=== PATIENT | female | born 1965 | race Two or more races ===

== ENCOUNTER 2016-07-16 06:20 | Inpatient (IN) | payer BC ==
[2016-07-16] VITALS (10 sets, daily range): BP systolic 118–149; BP diastolic 60–88
[~2016-07-16] VITALS: Ht 162.6 cm; Wt 71.2 kg
[2016-07-16] MEDS ORDERED: ceFAZolin sod 2 GM in D5W 110 ML IVPB ONE (07:00)
[2016-07-16] MEDS ORDERED: LEVOTHYROXINE100 MCG ORAL (07:47)
[2016-07-16] MEDS ORDERED: LIORESAL20 MG ORAL (07:52)
[2016-07-16] MEDS ORDERED: MELOXICAM15 MG PO (07:52)
[2016-07-16] MEDS ORDERED: PANTOPRAZOLE SO20 MG ORAL (07:52)
[2016-07-16] MEDS ORDERED: GABAPENTIN100 MG ORAL (08:00)
[2016-07-16] MEDS ORDERED: CYMBALTA30 MG ORAL (08:01)
[2016-07-16] MEDS ORDERED: Thrombin 5000 units TOPIC ONE (08:16)
[2016-07-16] MEDS ORDERED: Gelfoam Absorbable 1gm powder pkt TOPIC ONE (08:17)
[2016-07-16] MEDS ORDERED: Bacitracin 50000 Units Vial ONE (08:17)
[2016-07-16] MEDS ORDERED: Bupivacaine w/Epi 0.5% 30ml Vial INJ ONE (08:17)
[2016-07-16] MEDS ORDERED: Thrombin 5000 units spray kit TOPIC ONE (08:17)
--- NOTE | 2016-07-16 08:55 | Pre-Procedure Note/Attestation ---
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 I attest that, if there was a reasonable possibility of needing a blood transfusion, the patient (or the patient's legal sales representative consultant) was given the [facility] standardized written summary, pursuant to the [place] Blood Safety Act ([place] Health and Safety Code # 1645, as amended). I attest that I re-evaluated the patient just prior to the surgery and that there has been no change in the patient's H&P, except as documented below: MEI LOPEZ Jul 16, 2016 08:55
[2016-07-16] MEDS ORDERED: Dexamethasone 4mg/ml vial ONE (09:00)
[2016-07-16] MEDS ORDERED: Neostigmine 1mg/ml 10ml Inj ONE (09:00)
[2016-07-16] MEDS ORDERED: Zemuron 50mg/5ml Inj IV ONE (09:00)
[2016-07-16] MEDS ORDERED: Glycopyrrolate 0.2mg/ml 1ml Vial ONE (09:00)
[2016-07-16] MEDS ORDERED: fentaNYL 100 mcg/2 mL IV ONE (09:00)
[2016-07-16] MEDS ORDERED: fentaNYL 250mcg/5ml ONE (09:00)
[2016-07-16] MEDS ORDERED: Lidocaine 1% MPF 10mg/ml 5ml ONE (09:00)
[2016-07-16] MEDS ORDERED: LR 1000ml ONE (09:00)
[2016-07-16] MEDS ORDERED: Propofol 10mg/ml 100ml btl IV ONE (09:00)
--- NOTE | 2016-07-16 09:28 | Brief Operative Note ---
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
[2016-07-16] MEDS ORDERED: LR 1000ml 1,000 ML IVLG SCH (09:39)
--- NOTE | 2016-07-16 09:39 | Anethesia Preoperative Eval ---
Anesthesia Pre-op PMH/ROS General Date of Evaluation: Jul 16, 2016 Time of Evaluation: 08:56 Anesthesiologist: Joseluis ASA Score: ASA 2 Mallampati Score Class I : Soft palate, uvula, fauces, pillars visible Class II: Soft palate, uvula, fauces visible Class III: Soft palate, base of uvula visible Class IV: Only hard plate visible Mallampati Classification: Class II Surgeon: Judie Diagnosis: Neck Pain Surgical Procedure: ACDF C4-7 Anesthesia History: none Family History: no anesthesia problems Allergies: Coded Allergies: NO KNOWN ALLERGIES (Unverified Allergy, Unknown, 04/17/15) Medications: see eMAR Past Medical History Cardiovascular: Reports: HTN Gastrointestinal/Genitourinary: Reports: GERD Hematology/Immune: Reports: anemia PSxH Narrative: Thyroidectomy, NAJMA Anesthesia Pre-op Phys. Exam Physician Exam Last Vital Signs Date Time Temp Pulse Resp B/P Pulse Ox O2 Delivery O2 Flow Rate FiO2 07/16/16 07:43 97.5 65 18 132/73 100 Room Air Constitutional: NAD Neurologic: CN 2-12 intact Cardiovascular: RRR Respiratory: CTA Gastrointestinal: S/NT/ND Airway Exam Mallampati Score: Class II MO: full ROM: limited Teeth: intact Anesthesia Pre-op A/P Risk Assessment & Plan Assessment: ASA 2 Plan: GA, BIS, Glidescope Status Change Before Surgery: No Pre-Antibiotics Dru Grams Ancef IV Given Within 1 Hr of Incision: Yes Time Given: 09:16 Baldev Huggins MD Jul 16, 2016 09:39
--- NOTE | 2016-07-16 09:42 | Immediate Post-Op Evaluation ---
Immediate Post-Op Evalulation Immediate Post-Op Evalulation Procedure: ACDF C4-7 Date of Evaluation: Jul 16, 2016 Time of Evaluation: 13:09 IV Fluids: 1500 LR Blood Products: 0 Estimated Blood Loss: 50 Urinary Output: 250 Blood Pressure Systolic: 133 Blood Pressure Diastolic: 74 Pulse Rate: 81 Respiratory Rate: 16 O2 Sat by Pulse Oximetry: 100 Temperature (Fahrenheit): 97.5 Pain Score (1-10): 3 Nausea: No Vomiting: No Complications 0 Patient Status: awake, reacts, patent, extubated, none Hydration Status: adequate Dru Grams Ancef IV Given Within 1 Hr of Incision: Yes Time Given: 09:16 Baldev Huggins MD Jul 16, 2016 09:42
[2016-07-16] MEDS ORDERED: fentaNYL 100 mcg/2 mL IV PRN (09:45)
[2016-07-16] MEDS ORDERED: Ketorolac 30mg Inj IV PRN (09:45)
[2016-07-16] MEDS ORDERED: DiphenhydrAMINE 50mg/ml Inj IVP PRN (09:45)
[2016-07-16] MEDS ORDERED: Ketorolac 60mg Inj IV PRN (09:45)
[2016-07-16] MEDS ORDERED: Labetalol 5mg/ml 20ml vial IV PRN (09:45)
[2016-07-16] MEDS ORDERED: Atropine Inj 1mg/10ml Syr IV PRN (09:45)
[2016-07-16] MEDS ORDERED: Norco 5mg/325mg tab ORAL PRN ×2 (09:45→15:00)
[2016-07-16] MEDS ORDERED: Meperidine 25mg/ml Inj IV PRN (09:45)
[2016-07-16] MEDS ORDERED: Metoclopramide 10mg/2ml Inj IVP PRN ×2 (09:45→15:00)
[2016-07-16] MEDS ORDERED: Hydromorphone 0.5mg/0.5ml inj IVP PRN (09:45)
[2016-07-16] MEDS ORDERED: Oxycodone/Acetaminophen 5-325 ORAL PRN (09:45)
[2016-07-16] MEDS ORDERED: Midazolam 2mg/2ml Inj IVP PRN (09:45)
[2016-07-16] MEDS ORDERED: LORazepam Inj 2mg/ml 1ml IV PRN (09:45)
[2016-07-16] MEDS ORDERED: Norco 7.5mg/325mg tab ORAL PRN ×2 (09:45→15:00)
[2016-07-16] MEDS ORDERED: Vancomycin 1gm inj IVPB ONE (11:55)
[2016-07-16] MEDS ORDERED: Acetaminophen 650 MG SUPP RECTAL PRN (12:30)
[2016-07-16] MEDS: D5 1/2NS 1,000 ML IV SCH (15:00)
[2016-07-16] MEDS ORDERED: Milk of Magnesia 30ml Ud ORAL PRN (15:00)
[2016-07-16] MEDS ORDERED: HYDROmorphone 1mg/ml Carpuject SUBQ PRN (15:00)
[2016-07-16] MEDS ORDERED: Naloxone 0.4mg/ml Inj IVP PRN (15:00)
--- NOTE | 2016-07-16 16:25 | Diagnostic Imaging Report ---
Indication: The lateral upper extremities and back, intraoperative imaging Technique: Digital intraoperative images Comparison: None Findings: Initial localizer image demonstrates a surgical tool projected anterior to the C6-7 disc space. Subsequent images document anterior fusion of C4-C7, with placement of intervening disc spacers. Impression: Intraoperative imaging, as described
[2016-07-16] MEDS: ceFAZolin sod 1 GM in D5W 55 ML IV SCH (17:00)
[2016-07-16] MEDS: Pericolace tab ORAL SCH (18:00)
[2016-07-16] MEDS: Docusate 100mg tablet ORAL SCH (18:00)
--- NOTE | 2016-07-16 20:17 | Operative Note - Dictated ---
DATE OF OPERATION: 07/16/2016 PREOPERATIVE DIAGNOSIS: Cervical discopathy, C4, C5, C6, and C7 with myeloradiculopathy. POSTOPERATIVE DIAGNOSIS: Cervical discopathy, C4, C5, C6, and C7 with myeloradiculopathy. PROCEDURE: 1. Wide and radical discectomy C4-5, C5-6, and C6-7. 2. Partial ankle vertebrectomies bilaterally at C4-5, C5-6, and C6-7. 3. Interbody fusion using Alphatec PEEK cage filled with Bacterin bone allograft and local autograft. 4. Anterior instrumentation using Alphatec plates and screw system. 5. Use of fluoroscopy. 6. Use of operating microscope. 7. Neurodiagnostic monitoring. ESTIMATED BLOOD LOSS: Minimal/less than 100 mL. COMPLICATIONS: None. SURGEON: Flash Dimas M.D. STOCKHOLDER: Juan David Hernández PA-C. ANESTHESIOLOGIST: Baldev Huggins M.D. ANESTHESIA TYPE: General endotracheal anesthesia. INDICATIONS: The patient is a very pleasant woman with multilevel cervical spondylosis; disc rupture at C4-5, foraminal stenosis at C5, C6, and C7; and also has a disk herniation at C3-C4. I have discussed with her the option of addressing all four levels or fusing the worst three and rehabbing the upper level and if necessary, place an artificial disc. She elected to proceed with a three-level procedure rather than a four-level procedure. RISK NOTE: The patient was explained in detail the risks and benefits of surgery to include, but not be limited to those of bleeding, infection, damage to nerves, vessels, tendons, anesthetic risk, allergic reaction, aspiration, and possibly . The patient understood and wished to proceed. OPERATIVE PROCEDURE IN DETAIL: The patient was taken to the operative suite. After general endotracheal anesthesia was obtained, Menjivar catheter was placed. She was placed supine on to a radiolucent table, bolster under her neck, chin was strapped, and arms were tucked. Once the neck was prepped and draped in the usual sterile fashion, fluoroscope was brought in place, and the C5-6 interspace was identified. The skin was infiltrated with Marcaine with epinephrine. A transverse incision was made at C5-C6. It was sharply carried down through subcutaneous. Platysma was split perpendicular to the fibers. Interval medial to sternocleidomastoid was identified and blunt dissection was carried out through the area of the prevertebral fascia. Dissection was extended from C4 down to C7. Self-retaining retractors were put in place. A needle was placed at C5-C6 and this was confirmed radiographically. Attention was first turned to the C6-C7 level. [place] posts were placed at C6 and C7. Anterior osteophytes were removed with a rongeur, and the disk was incised. Dissection was carried out all the way to the posterior osteophytes. Gentle distraction of the disk space was achieved. Once the gross discectomy was performed, endplate preparation was performed. At this time, under high-power microscopic visualization, posterior osteophytes were drilled down all the way to the remnants of the posterior annulus. The posterior anulus and PLL were removed with curved Microsect curette and Kerrison to punch. Once the posterior osteophytes were removed, partial uncovertebrectomies were then performed using a high-speed drill and curette and Kerrison punch. Once satisfied with the decompression, an appropriate-sized Alphatec PEEK cage was chosen and was centrally packed with Bacterin bone that had been soaking in the patient's blood to reconstitute the bone. The bone graft was applied to the central cavity of the cage and a 6 mm small cage was placed into C6-C7. Additional bone graft was placed both on the right and on the left of the cage. Once satisfied with this, the Mayo posts was removed from C7. It was placed into C5 and in an identical fashion, a wide and radical discectomy, posterior osteophytectomy, and uncovertebrectomy was performed decompressing the spinal cord. At this level, a 5 mm small cage was chosen and also packed with allograft bone and the periphery of the cage was also packed once it was placed inside the interspace of the C5-6 disk. Once satisfied with this, the Mayo post was removed from C6 and placed into C4 and in an identical fashion, wide and radical discectomy and posterior osteophytectomy was performed. C4-5 did not require a partial uncovertebrectomy, but there were posterior osteophytes requiring removal. Once satisfied with the discectomy, a 5 mm small cage was chosen and centrally packed with bone graft and was applied within the disk space. At this point, fluoroscopic images were obtained demonstrating appropriate positioning of the cages. Then, an appropriate size Alphatec plate was chosen, contoured, and applied to the anterior aspect of the vertebral body. The screw holes were first filled using 12 mm screws at C5 and C6. This caused a lag affect compressing and pulling the bone up to the plate reconstituting normal lordosis. At this juncture, once the screws at C5 and C6 were applied and fluoroscopically checked, I was then able to apply 14 mm screws at C4 and at C7 and once checked fluoroscopically were in excellent position. Additional local autograft bone was then packed around the plate and into the interspaces that still could accept bone graft. Once satisfied with this, copious irrigation was performed. At this point, once irrigation was performed, I elected to apply 1 g of vancomycin powder into the anterior incision. Meticulous hemostasis was achieved, which negated requirement of placement of a drain. At this point, the platysma was repaired using 3-0 Vicryl and subcutaneous closure using 4-0 Vicryl. Dermabond and Tegaderm dressing was applied. The patient tolerated the procedure well. At the time of this dictation, the patient was awaiting extubation. Flash Diams M.D. DR: RADHA JOB#: [id number] CC:
[2016-07-17] VITALS: BP 142/81
[2016-07-17] MEDS: ceFAZolin sod 1 GM in D5W 55 ML IV SCH ×2 (00:39→08:29)
[2016-07-17] MEDS: D5 1/2NS 1,000 ML IV SCH ×4 (00:39→19:48)
[2016-07-17 04:00] VITALS: BP 144/74
[2016-07-17 08:00] VITALS: BP 138/84
[2016-07-17] MEDS: Pericolace tab ORAL SCH ×2 (08:28→17:21)
[2016-07-17] MEDS: Docusate 100mg tablet ORAL SCH ×2 (08:28→17:22)
--- NOTE | 2016-07-17 08:56 | 48 Hour Post Anesthesia Eval ---
Post Anesthesia Evaluation Procedure: ACDF C4-7 Date of Evaluation: Jul 17, 2016 Time of Evaluation: 11:46 Blood Pressure Systolic: 144 0: 74 Pulse Rate: 68 Respiratory Rate: 18 Temperature (Fahrenheit): 98.4 O2 Sat by Pulse Oximetry: 100 Airway: patent Nausea: No Vomiting: No If pain is > 6 Comment: 5 Hydration Status: adequate Cardiopulmonary Status: Stable Mental Status/LOC: patient returned to baseline Follow-up Care/Observations: As per surgery Post-Anesthesia Complications: No anesthetic complication Follow-up care needed: N/A CRISTIANO GASTELUM M.D. Jul 17, 2016 08:56
[2016-07-17] MEDS ORDERED: Meloxicam 15 MG TAB ORAL PRN (09:45)
[2016-07-17] MEDS ORDERED: DULoxetine 30mg cap ORAL PRN (09:45)
[2016-07-17] MEDS: Norco 7.5mg/325mg tab ORAL PRN ×2 (11:47→17:22)
[2016-07-17 12:00] VITALS: BP 134/72
[2016-07-17] MEDS: HYDROmorphone 1mg/ml Carpuject IVP PRN ×2 (13:22→21:13)
[2016-07-17 16:50] VITALS: BP 138/70
--- NOTE | 2016-07-17 18:58 | Orthopedic Spine Progress Note ---
Ortho Spine - Progress Note Subjective Symptoms: c/o post-op neck pain, improved - strength in arms, but numbness unchanged Objective Vital Signs: Last 24 Hour Vital Signs Date Time Temp Pulse Resp B/P Pulse Ox O2 Delivery O2 Flow Rate FiO2 07/17/16 18:21 98.1 07/17/16 16:50 98.1 68 21 138/70 99 Nasal Cannula 07/17/16 13:52 98.4 07/17/16 12:00 97.7 66 20 134/72 97 Nasal Cannula 07/17/16 08:56 68 18 100 07/17/16 08:00 97.5 62 18 138/84 100 Nasal Cannula 07/17/16 04:00 98.4 68 18 144/74 100 Nasal Cannula 2.0 07/17/16 00:00 97.7 82 18 142/81 100 Nasal Cannula 2.0 07/16/16 20:30 98.2 81 16 149/88 99 Nasal Cannula 3.0 I&O: Intake and Output 07/16/16 07/17/16 19:00 07:00 Intake Total 1600 ml 600 ml Output Total 300 ml 1130 ml Balance 1300 ml -530 ml Intake Oral 600 ml IV Total 1600 ml Output Urine Total 250 ml 1130 ml Estimated Blood Loss 50 ml # Voids 1 Wound: clean, intact Drains: none Neuro Status: stable - subjective improvement in strength in BUE Assessment Procedure Performed: ACDF C4-7 Plan Plan: PT, pain management, d/c antibiotics, discharge plan - in MEI Rivera Jul 17, 2016 18:58
[2016-07-17 20:00] VITALS: BP 140/80
[2016-07-18] VITALS: BP 149/85
[2016-07-18 04:00] VITALS: BP 141/82
[2016-07-18] MEDS: D5 1/2NS 1,000 ML IV SCH (07:00)
[2016-07-18 08:00] VITALS: BP 148/75
[2016-07-18] MEDS: Pericolace tab ORAL SCH (08:33)
[2016-07-18] MEDS: Docusate 100mg tablet ORAL SCH (08:33)
[2016-07-18] MEDS ORDERED: D5 1/2NS 1000ml IV ONE (09:36)
[2016-07-18] MEDS ORDERED: Tubing IV Secondary IV ONE (09:36)
--- NOTE | 2016-07-19 10:39 | Discharge Summary ---
Discharge Summary Hospital Course Date of Admission Jul 16, 2016 at 06:57 Date of Discharge Jul 18, 2016 at 11:35 Admitting Diagnosis PITA Laughlin is a 51 year old female who was admitted on Jul 16, 2016 at 06: 57 for Cervical Spondylosis Hospital Course [id number] Discharge Discharge Disposition Patient was discharged to Home (01) Discharge Diagnoses: Josie Azar NP Jul 19, 2016 10:39
--- NOTE | 2016-07-19 22:58 | Discharge Summary 2 SIG ---
DATE OF ADMISSION: 07/16/2016 DATE OF DISCHARGE: 07/18/2016 BRIEF HOSPITAL COURSE: The patient is a 51-year-old female with multilevel cervical spondylosis and disk rupture at C4-C5, foraminal stenosis at C5, C6, and C7. Also, has a disk herniation at C3-C4, was admitted on 07/16/2016 and underwent ACDF on C4-C7. Postoperatively, she was given IV hydration with neuro checks. She was instructed to use incentive spirometry and was given SCDs for DVT prophylaxis. She was seen by physical therapy and occupational therapy and was given postop cervical diet. She was advised to wear a cervical collar when out of bed. She was given front-wheeled walker and raised toilet seat and was discharged home. Advised to follow up as outpatient. FINAL DIAGNOSES: Cervical diskopathy in C4, C5, C6, and C7 with myeloradiculopathy, status post anterior cervical diskectomy and fusion on C4-C7. Flash Dimas M.D. I have been assigned to dictate discharge summary on this account and I was not involved in the patient's management. Josie Azar N.P. DR: ANISH JOB#: [id number] CC:
== END 2016-07-18 11:35 | disposition home or self-care (01) | DRG 472 ==
LOC: SDSOVERFLO 06:57 → 3E 14:30
PROC: 0RT30ZZ Resection of Cervical Vertebral Disc, Open Approach (ICD-10-PCS; 2016-07-16)
PROC: 0RG20A0 Fusion of 2 or more Cervical Vertebral Joints with Interbody Fusion Device, Anterior Approach, Anterior Column, Open Approach (ICD-10-PCS; principal; 2016-07-16 09:15)
PROC: 0RG2070 Fusion of 2 or more Cervical Vertebral Joints with Autologous Tissue Substitute, Anterior Approach, Anterior Column, Open Approach (ICD-10-PCS; principal; 2016-07-16 09:15)
DX: M50.023 Cervical disc disorder at C6-C7 level with myelopathy (principal); M47.12 Other spondylosis with myelopathy, cervical region; E03.9 Hypothyroidism, unspecified; K21.9 Gastro-esophageal reflux disease without esophagitis
CPT/HCPCS: 36415; 72040; 76001; 86850; 86900; 86901; 87081; 94003; 94150; C9399; J2405; J2710